=== PATIENT | male | born 1980 | race Caucasian/White ===

== ENCOUNTER → 2019-04-30 | Outpatient (CLI) | payer BC ==
--- NOTE | 2019-04-30 17:45 | NM ---
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 Images acquired 3 hours pos t injection. SPECT views of the lumbar spine are submitted. FINDINGS: There is no abnormal uptake within the visualized osseous structures to suggest acute process. Radiot racer distribution appears normal IMPRESSION: 1. No suspicious acute osseous abnormality.
== END | disposition home or self-care (01) ==
LOC: RADNMMAIN 09:51
PROVIDERS: ATTEND Physical Medicine & Rehabilitation
DX: M47.817 Spondylosis without myelopathy or radiculopathy, lumbosacral region (principal)
CPT/HCPCS: 78803; A9503